=== PATIENT | male | born 1970 | race Caucasian/White ===

== ENCOUNTER 2023-01-20 07:28 | Day surgery (SDC) | payer BC, OTHER, SELFPAY ==
[2023-01-20 07:49] VITALS: BP 126/91; PULSE 81; RESP 17; TEMP 35.7; O2SAT 99; BMI 29.9
[2023-01-20] MEDS: LACTATED RINGERS 1,000 ML 84 ML IV (08:03)
--- NOTE | 2023-01-20 08:23 | PM.HP.1 ---
History of Present Illness History of Present Illness Date Patient Seen: 01/20/23 Chief complaint: SDC Narrative: Screening PFS Social History household members: none Smoking Status: Never smoker alcohol intake: current Meds Home Medications and Allergies Home Medications Medication Instructions Recorded Confirmed Type fluticasone furoate 50 inhalation 01/20/23 History mcg/actuation blister powder for inhalation lisinopril 2.5 mg PO DAILY 01/20/23 01/20/23 History Allergies Allergy/AdvReac Type Severity Reaction Status Date / Time No Known Allergies Allergy Verified 01/20/23 07:45 Exam Vital Signs (past 8 hours): - 01/20/23 07:49 Temperature 96.2 F L Pulse Rate 81 Respiratory Rate 17 Blood Pressure 126/91 H Pulse Oximetry 99 Oxygen Delivery Method Room Air Oxygen Delivery Method Room Air Narrative Exam Narrative: oropharynx free of lesions Chest clear to auscultation percussion Cardiac exam reveals no S3 or murmur Assessment & Plan Assessment & Plan narrative: 1st screening colonoscopy. Risks, benefits, alternatives have been explained.
--- NOTE | 2023-01-20 08:25 | PM.OP.COLON ---
Operative Date/Time/Diagnoses Date of procedure: 01/20/23 Pre-op diagnosis: See indication and findings Procedure & Clinicians Study performed: colonoscopy Indications: 1st screening colonoscopy Surgeon: Ghazala Sánchez Procedure Notes Procedure in detail: after informed consent was obtained the patient was placed in left lateral decubitus position. The video colonoscope was introduced in the rectum slowly advanced cecum. Preparation was good. On slow withdrawal mucosa was carefully examined. The scope was removed. The patient tolerated procedure well. Blood loss none Complications none Sedation mac Findings 1. Significant posterior rectal prolapse, chronic. No clear intrarectal lesion on retroflexion 2. Otherwise negative colonoscopy to cecum Patient should have follow-up colonoscopy in 10 years. He should consider evaluation by surgery for this moderately large perianal lesion
[2023-01-20 09:04] VITALS: BP 109/67; PULSE 76; RESP 12; TEMP 36.5; O2SAT 95
[2023-01-20 09:09] VITALS: BP 111/69; PULSE 69; RESP 12; O2SAT 96
[2023-01-20 09:15] VITALS: BP 106/73; PULSE 67; RESP 11; O2SAT 98
[2023-01-20 09:19] VITALS: BP 112/84; PULSE 75; RESP 13; TEMP 36.4; O2SAT 97
[2023-01-20 09:25] VITALS: BP 129/94; PULSE 73; RESP 12; TEMP 36.3; O2SAT 98
== END 2023-01-20 09:41 | disposition home or self-care (01) ==
PROVIDERS: Referring Provider Internal Medicine Gastroenterology; Visit Provider Internal Medicine Gastroenterology
PROC: 0DJD8ZZ Inspection of Lower Intestinal Tract, Via Natural or Artificial Opening Endoscopic (ICD-10-PCS; CPT 45378; principal; 2023-01-20 08:30)
DX: Z12.11 Encounter for screening for malignant neoplasm of colon (principal); K62.3 Rectal prolapse
CPT/HCPCS: 45378; J2704